=== PATIENT | female | born 1955 | race Caucasian/White ===

== ENCOUNTER 2018-06-19 06:47 | Emergency (ER) | payer OTHER ==
[~2018-06-19] VITALS: Ht 165.1 cm; Wt 72.7 kg
[2018-06-19 07:14] LABS: GLUCOSE,POINT OF CARE 262 MG/DL (70-110)
[2018-06-19] MEDS ORDERED: METF-960 PO (07:15)
[2018-06-19] MEDS ORDERED: INSNOV SQ (07:15)
[2018-06-19] MEDS ORDERED: INSLAN SQ (07:15)
[2018-06-19] MEDS ORDERED: IBUPROFEN 600 MG TABLET PO ONE (09:30)
[2018-06-19 09:44] VITALS: BP 141/58
== END 2018-06-19 11:09 | disposition home or self-care (01) ==
LOC: EMS 06:48
DX: S13.4XXA Sprain of ligaments of cervical spine, initial encounter (principal); E11.9 Type 2 diabetes mellitus without complications; Z88.5 Allergy status to narcotic agent; Z79.4 Long term (current) use of insulin; V43.62XA Car passenger injured in collision with other type car in traffic accident, initial encounter; Y93.89 Activity, other specified; Y92.89 Other specified places as the place of occurrence of the external cause; Y99.8 Other external cause status
CPT/HCPCS: 72040